=== PATIENT | female | born 1960 | race Caucasian/White ===

== ENCOUNTER 2017-05-23 20:49 | Inpatient (IN) | payer BC, OTHER ==
[~2017-05-23] VITALS: Ht 152.4 cm; Wt 67.1 kg
[2017-05-23] MEDS ORDERED: ONDANSETRON ODT 4 MG TAB.RAPDIS SL PRN (21:45)
[2017-05-23] MEDS ORDERED: MAG HYDROX/AL HYDROX/SIMETH 30 ML LIQUID UDC PO PRN (21:45)
[2017-05-23] MEDS ORDERED: ONDANSETRON 4 MG/2 ML VIAL IM PRN (21:45)
[2017-05-23] MEDS ORDERED: DICYCLOMINE HCL 20 MG TABLET PO PRN (21:45)
[2017-05-23] MEDS ORDERED: LOPERAMIDE HCL 2 MG CAPSULE PO PRN ×2 (21:45)
[2017-05-23] MEDS ORDERED: LORAZEPAM 1 MG TABLET PO PRN (21:45)
[2017-05-23] MEDS ORDERED: diphenhydrAMINE 50 MG CAPSULE PO PRN (21:45)
[2017-05-23] MEDS ORDERED: ACETAMINOPHEN 325 MG TABLET PO PRN (21:45)
[2017-05-23] MEDS ORDERED: LORAZEPAM 2 MG/1 ML VIAL IM PRN (21:45)
[2017-05-23] MEDS ORDERED: THIAMINE HCL 200 MG/2 ML VIAL IM ONE (21:45)
[2017-05-23] MEDS ORDERED: MIRALAX 17 GM POWD.PACK PO PRN (21:45)
--- NOTE | 2017-05-23 22:30 | NUR ---
PREADMISSION NOTE: 56 years old, well-nourished, alert, caucasion [facility], accompanied by her spouse and son. Patient responds to nurse's greeting and introduction with eye contact, a handshake and, "Hi, how are you?" Patient denies any pain and states that she has no seizure history. Patient states that she has an active history of : Anxiety, Depression, Hypertension, and Hyperlipidemia, for which she takes : Lipitor 40 mg, Lisinopril 40 mg, Metoprolol 50 mg, Norvasc 5 mg and Paxil 20 mg. Patient states that she has no known allergies to anything and she states further that this is her first detox admission/treatment. Patient states that her PCP is Dr. Jovita Dias. Vital signs are: 96.6-80-18 105/65, O2 Sat 96%. Patient given explanations regarding [facility] floor protocols i.e Q 4hrs vital signs, medication reconciliation and controlled medication disposal. Patient states, " okay". Patient is cooperative and verbally appropriate, but she is anxious and some questions must be repeated in order for her to answer.
[2017-05-23 22:37] LABS: *URINE HCG, QUAL NEGATIVE (NEGATIVE)
--- NOTE | 2017-05-23 22:42 | NUR ---
9304 ADMISSION NOTE: Patient admitted to [facility], to room # 318, after being given brief tour of floor by female CUFF FOLDER. Patient ambulates steady. Patient oriented to her room, call light and immediate surroundings. Patient is oriented to person, place, day, date and her personal situation. Easily reoriented to time. Vital signs are: 98.7-82-18 130/82, O2 Sat 97%, CIWA 5. Patient states that this is her first time in detox and she came to [facility] to be admitted for Alcohol withdrawal today, because her family decided that " it was time". Patient first started drinking socially at age 19 and she drink on and off casually, until 3 years ago, when she states that her drinking became more frequent and steady. Patient states that she has been drinking " five Vodka martinis every day for the past 2 weeks, though she is not exactly sure the exact amount of those martinis. Patient last had " five vodka martinis on 05/22/17. Patient had sandwich snack, juice and water. DVT pump with bilateral leg sleeves put on bed and explanation given about them given to patient. Patient states, " okay". Patient states, " When do I get to go to sleep and get some rest?" Please see preadmission note for added patient information. Fall/seizure precautions put in place. Bed is locked and in lowest position, bed rails are up X 2 and call light within patient's easy reach.
[2017-05-23 22:51] LABS: *AMPHETAMINE, URINE NEGATIVE (NEGATIVE); *BARBITURATE, URINE NEGATIVE (NEGATIVE); *CANNABINOID, URINE NEGATIVE (NEGATIVE); *COCCAINE, URINE NEGATIVE (NEGATIVE); *OPIATE, URINE NEGATIVE (NEGATIVE); *PHENCYCLIDINE SCREEN,URINE NEGATIVE (NEGATIVE)
[2017-05-23] MEDS ORDERED: LORAZEPAM 1 MG TABLET PO SCH (23:00)
[2017-05-24] VITALS: BP 130/82
[2017-05-24] MEDS ORDERED: THIAMINE HCL 200 MG/2 ML VIAL ONE (00:45)
--- NOTE | 2017-05-24 04:00 | NUR ---
Patient requests at 0000 not to be awakened for V/S, CIWA to be done at this time. These assessments deferred.
[2017-05-24] MEDS: LORAZEPAM 1 MG TABLET PO PRN ×2 (06:09→12:30)
[2017-05-24] MEDS ORDERED: LORAZEPAM 1 MG TABLET ONE (06:22)
--- NOTE | 2017-05-24 06:22 | NUR ---
PRN MEDICATION: Prn Ativan 1 mg p.o. given per c/o " feeling shakey", CIWA 5.
--- NOTE | 2017-05-24 06:30 | NUR ---
0630 Patient slept a total of 5 hours and she had 1 void and no stools. Total intake was 800 ml p.o. Prn medication given noted separately per floor protocol. V/SS afebrile, last CIWA 5 at 0622. Patient is presently sleeping comfortably with eyes closed and respirations quiet, even at 12.
[2017-05-24 06:52] LABS: BASOPHILS % (AUTO) 0.7 % (0.0-2.0); EOSINOPHILS # (AUTO) 0.1 K/uL (0.0-0.7); EOSINOPHILS % (AUTO) 1.5 % (0.0-7.0); HEMATOCRIT 39.5 % (37-47); HEMOGLOBIN 13.8 G/DL (12.0-16.0); LYMPHOCYTES # (AUTO) 1.1 K/UL (0.8-4.8); LYMPHOCYTES % (AUTO) 27.7 % (20.5-51.5); MEAN CORPUSCULAR HEMOGLOBIN 34.2 UUG (27.0-31.0); MEAN CORPUSCULAR HGB CONC 35 g/dL (32.0-37.0); MEAN CORPUSCULAR VOLUME 97.9 FL (81.0-99.0); MONOCYTES # (AUTO) 0.2 K/UL (0.1-1.30); MONOCYTES % (AUTO) 4.7 % (0.0-11.0); NEUTROPHILS # (AUTO) 2.7 K/UL (1.8-8.9); NEUTROPHILS % (AUTO) 65.4 % (38.5-71.5); PLATELET COUNT (AUTO) 201 K/UL (150-450); RED BLOOD CELL COUNT(AUTO) 4.04 MIL/UL (4.2-5.4); WHITE BLOOD COUNT (AUTO) 4.1 K/UL (4.0-11.2)
--- NOTE | 2017-05-24 07:05 | NUR ---
CIWA deferred as patient is sleeping and CIWA order is Q4 hrs while awake.
[2017-05-24 07:17] LABS: ALANINE AMINOTRANSFERASE 56 U/L (14-59); ALKALINE PHOSPHATASE 71 U/L (50-136); AMYLASE 79 U/L (25-115); ASPARTATE AMINOTRANSFERASE 50 U/L (15-37); BILIRUBIN,TOTAL 0.5 mg/dL (0.2-1.0); CARBON DIOXIDE 28 mmol/L (21-32); CHLORIDE 103 mmol/L (98-107); CREATININE 0.7 mg/dL (0.6-1.3); GLUCOSE 84 mg/dL (74-106); MAGNESIUM 1.8 mg/dL (1.8-2.4); POTASSIUM 3.2 mmol/L (3.5-5.1); TOTAL PROTEIN, SERUM 7.8 g/dL (6.4-8.2); UREA NITROGEN, BLOOD 17 mg/dL (7-18)
--- NOTE | 2017-05-24 07:28 | NUR ---
REASSESSMENT PRN MEDICATION : Patient is sleeping comfortably with eyes closed and respirations quiet, even, unlabored at 12.
--- NOTE | 2017-05-24 07:45 | NUR ---
START OF SHIFT Rcvd endorsement from ongoing nurse, client is in room, she is a/o x 4, she presents with anxious, depressed mood, flat affect. She reports restless legs and fatigue. She denies any SI/HI. Encourage client to attend to group therapy for skills to maintain sober. Encourage client to increase PO fluid intake as tolerated to facilitate detox. Client is a 56 y/o female, admitted to [facility] for withdrawal from alcohol. She is schedule to start 4 day Ativan taper @ 0900. Last CIWA 5 @ 0400. Client slept 5 hrs. She denies a hx of withdrawal-induced seizures, Client reports NKA , she is full code, regular diet. Side rails x 2 up/padded for seizure precautions. Call light within reach.
[2017-05-24 08:33] VITALS: BP 144/98
[2017-05-24] MEDS: FOLIC ACID 1 MG TABLET PO SCH (08:55)
[2017-05-24] MEDS: THIAMINE HCL 100 MG TABLET PO SCH (08:55)
[2017-05-24] MEDS: MULTIVITAMINS,THERAPEUTIC TABLET PO SCH (08:55)
[2017-05-24] MEDS ORDERED: TUBERCULIN,PURIF.PROT.DERIV. 5 TU/0.1 ML TEST ID ONE (09:00)
[2017-05-24] MEDS ORDERED: PATIENT MAY USE OWN MED- MD OK PO SCH ×4 (09:00→21:00)
[2017-05-24] MEDS ORDERED: LORAZEPAM 1 MG TABLET PO SCH (09:00)
[2017-05-24] MEDS ORDERED: POTASSIUM CHLORIDE 10 MEQ CAPSULE.SA PO ONE (09:30)
[2017-05-24] MEDS ORDERED: METOPROLOL SUCCINATE XL 50 MG TAB.SR.24H PO ONE (10:00)
[2017-05-24] MEDS ORDERED: AMLODIPINE 5 MG TABLET PO ONE (10:00)
[2017-05-24] MEDS ORDERED: LISINOPRIL 20 MG TABLET PO ONE (10:00)
--- NOTE | 2017-05-24 10:00 | NUR ---
Client reports pain on urination. Client is afebrile. Dr Dugan notified
[2017-05-24] MEDS ORDERED: AMLO5TAB2 PO (10:22)
[2017-05-24] MEDS ORDERED: LISI40TA4 PO (10:22)
[2017-05-24] MEDS ORDERED: METO-304 PO (10:22)
[2017-05-24] MEDS ORDERED: ATOR40TA PO (10:22)
[2017-05-24] MEDS ORDERED: PARO20TA51 PO (10:25)
--- NOTE | 2017-05-24 10:30 | NUR ---
Dr. Dugan ordered urinalysis.
[2017-05-24 11:08] LABS: ETHANOL < 3 MG/DL (0-0)
--- NOTE | 2017-05-24 11:30 | NUR ---
Urine specimen collected, urine noted colin color, normal odor, zero sediments.
[2017-05-24 12:23] VITALS: BP 138/88
--- NOTE | 2017-05-24 12:30 | NUR ---
PRN Ativan 1mg PO administered for CIWA 13, M/B gross tremors, anxiety, diaphoresis, flashed face, increased P 108. Call light within reach.
--- NOTE | 2017-05-24 13:30 | NUR ---
Reassessment PRN Ativan 1mg PO decrease withdrawal symproms, less anxious, less tremors, CIWA 7, P 90. Call light within reach.
[2017-05-24 13:35] LABS: *BLOOD, URINE Trace-lysed (NEGATIVE); *CLARITY,URINE SLIGHTLY CLOUDY (CLEAR); *COLOR,URINE YELLOW (YELLOW); *KETONES,URINE NEGATIVE (NEGATIVE); *PROTEIN,URINE 1+ (NEGATIVE); LEUKOCYTE ESTERASE ,URINE TRACE (NEGATIVE); NITRITE, URINE NEGATIVE (NEGATIVE); UGLUCOSE NEGATIVE (NEGATIVE)
[2017-05-24 13:46] LABS: *BILIRUBIN,URIN NEGATIVE (NEGATIVE)
[2017-05-24] MEDS: LORAZEPAM 1 MG TABLET PO SCH ×3 (13:59→20:12)
[2017-05-24 14:00] LABS: BACTERIA,URINE MODERATE /HPF (NONE SEEN); SQUAMOUS EPITHELIAL CELL,UR MANY /HPF (NONE SEEN)
[2017-05-24 16:55] VITALS: BP 132/99
--- NOTE | 2017-05-24 19:41 | NUR ---
START OF SHIFT Rcvd endorsement from ongoing nurse, client is in room, she is a/o x 4, she presents with anxious, depressed mood, flat affect. She reports restless legs and fatigue. She denies any SI/HI. Encourage client to attend to group therapy for skills to maintain sober. Encourage client to increase PO fluid intake as tolerated to facilitate detox. Client is a 56 y/o female, admitted to [facility] for withdrawal from alcohol. She is schedule to start 4 day Ativan taper @ 0900. Last CIWA 5 @ 0400. Client slept 5 hrs. She denies a hx of withdrawal-induced seizures, Client reports NKA , she is full code, regular diet. Side rails x 2 up/padded for seizure precautions. Call light within reach. Addendum: 05/24/17 at 1945 by ALEX HOLDER RN IN ERROR
--- NOTE | 2017-05-24 19:46 | NUR ---
END OF SHIFT Client is a 56 y/o female, admitted to [facility] for withdrawal from alcohol. She is on 4 day Ativan taper, tolerating well. Last CIWA 14 @ 0400. PRN Ativan 1mg for CIWA 13, after an hour CIWA 7. Client compliant with 1/3 of group therapy. She denies a hx of withdrawal-induced seizures, Client reports NKA , she is full code, regular diet. Side rails x 2 up/padded for seizure precautions. Call light within reach.
--- NOTE | 2017-05-24 19:47 | NUR ---
START OF SHIFT Pt is a 56 y/o female admitted on 05/23/17 for ETOH dependence. Pt was dependent on vodka 5 martinis daily for the past 2 weeks. Pt is full code, NKA, regular diet and fall/seizure precautions. Denies hx of seizures. Pt reports PMH of HTN, depression, anxiety, hyperlipidemia, left hip replacement, right shoulder repair. Pt is on a 4 day Ativan taper that started on 05/24/17, tolerating well. Potassium was 3.2 on 05/24/17, replaced with K+ 30 meq during day shift. Upon assessment pt was sleeping, upon awakening pt presents with gross tremors, anxiety, fatigue, difficulty concentrating, headache 07/20, decreased appetite, chills, mild sweats, dysphoria, anhedonia. Pt also reports dysuria, denies hematuria. Respirations 16, even and unlabored. Denies N/V/D. Denies chest pain or SOB. Medications due. Safety measures in place with padded rails. Call light within reach. Will continue to monitor. Addendum: 05/24/17 at 2223 by KHADAR GONZALEZ RN Pt has VTE score 2, pumps in place.
[2017-05-24 20:00] VITALS: BP 116/64
[2017-05-24] MEDS: PAROXETINE HCL 20 MG TABLET PO SCH (20:12)
[2017-05-24] MEDS: ATORVASTATIN 40 MG TABLET PO SCH (20:12)
[2017-05-24] MEDS: GABAPENTIN 300 MG CAPSULE PO SCH (20:12)
[2017-05-25] VITALS (7 sets, daily range): BP systolic 122–169; BP diastolic 67–109
--- NOTE | 2017-05-25 | NUR ---
CIWA DEFERRED Pt is laying in bed with eyes closed, CIWA deferred, to be assessed when pt is awake per orders. Respirations 16, even and unlabored. Safety measures in place. Call light within reach. Will continue to monitor.
--- NOTE | 2017-05-25 07:06 | NUR ---
END OF SHIFT Pt is a 56 y/o female admitted on 05/23/17 for ETOH dependence. Pt was dependent on vodka 5 martinis daily for the past 2 weeks. Pt is full code, NKA, regular diet and fall/seizure precautions. Denies hx of seizures. Pt reports PMH of HTN, depression, anxiety, hyperlipidemia, left hip replacement, right shoulder repair. Pt is on a 4 day Ativan taper that started on 05/24/17, tolerating well. Potassium was 3.2 on 05/24/17, replaced with K+ 30 meq. Pt has VTE score 2, pumps in place. Pt presented with gross tremors, anxiety, fatigue, difficulty concentrating, headache /10, decreased appetite, chills, mild sweats, dysphoria, anhedonia. Pt also reports dysuria, denies hematuria. Scheduled medications administered, effective in S/S of withdrawal as verbalized by pt. No PRNs administered. Last CIWA 9 at 1999. Pt slept 10 hours, intake 276 ml, void x 1, stool x 0. Safety measures in place. Call light within reach. Pts needs have been met. Endorsed to day shift nurse.
--- NOTE | 2017-05-25 07:10 | NUR ---
Start of Shift Patient Received. Patient is in her room sleeping. Breathing even and non labored. No signs of pain or discomfort noted. Patient is a 56 year old female, admitted on 05/23/17 for ETOH Dependence under the care of Dr. Dugan and is currently receiving a modified 4 day Ativan taper. Patient verbalizes no known allergies, wishes to be full code, following a regular diet, and placed on fall precautions. Skin noted with excoriation to lateral thigh. Per endorsement, last noted CIWA 9 and slept a total of 10 hours. patient noted with episodes of dysuria but denies hematuria. Will follow up with MD regarding UA. All needs attended to promptly. Will continue plan of care as ordered.
[2017-05-25] MEDS: FOLIC ACID 1 MG TABLET PO SCH (08:08)
[2017-05-25] MEDS: PAROXETINE HCL 20 MG TABLET PO SCH (08:08)
[2017-05-25] MEDS: MULTIVITAMINS,THERAPEUTIC TABLET PO SCH (08:09)
[2017-05-25] MEDS: GABAPENTIN 300 MG CAPSULE PO SCH ×3 (08:09→20:17)
[2017-05-25] MEDS: LISINOPRIL 20 MG TABLET PO SCH (08:09)
[2017-05-25] MEDS: LORAZEPAM 1 MG TABLET PO SCH ×4 (08:09→20:17)
[2017-05-25] MEDS: THIAMINE HCL 100 MG TABLET PO SCH (08:09)
[2017-05-25] MEDS: AMLODIPINE 5 MG TABLET PO SCH (08:09)
[2017-05-25] MEDS ORDERED: LORAZEPAM 1 MG TABLET PO SCH (09:00)
[2017-05-25] MEDS ORDERED: METOPROLOL SUCCINATE XL 50 MG TAB.SR.24H PO SCH (09:00)
--- NOTE | 2017-05-25 10:28 | NUR ---
Therapist prompted client about group times. Client stated she would attend groups today.
[2017-05-25 11:07] LABS: HEPATITIS B SURFACE AG Negative (Negative)
[2017-05-25] MEDS ORDERED: METOPROLOL SUCCINATE XL 25 MG TAB.SR.24H PO ONE (13:00)
[2017-05-25 17:42] LABS: CREATININE 0.9 mg/dL (0.6-1.3); POTASSIUM 4.2 mmol/L (3.5-5.1)
--- NOTE | 2017-05-25 19:04 | NUR ---
End of Shift Patient Received. Patient is in activities room participating in group activities. Patient is a 56 year old female, admitted on 05/23/17 for ETOH Dependence under the care of Dr. Dugan and is currently receiving a modified 4 day Ativan taper. No Known Allergies, Full Code, Regular Diet, and placed on fall precautions. Skin noted with excoriation to lateral thigh. Patient was seen and evaluated by MD with new orders for labs as well as changes tor routine medications. Patient Refused 1500 Neurontin with MD made aware. Last noted CIWA 3. All needs attended to promptly. Will endorse to continue plan of care as ordered.
--- NOTE | 2017-05-25 19:30 | NUR ---
START OF SHIFT Pt is a 56 y/o female admitted on 05/23/17 for ETOH dependence. Pt was dependent on vodka 5 martinis daily for the past 2 weeks. Pt is full code, NKA, regular diet and fall/seizure precautions. Denies hx of seizures. Pt reports PMH of HTN, depression, anxiety, hyperlipidemia, left hip replacement, right shoulder repair. Pt is on a 4 day Ativan taper that started on 05/24/17, tolerating well. Pt has VTE score 2, pumps in place. Upon assessment pt is laying in bed watching TV and pt presents with gross tremors, anxiety, fatigue, difficulty concentrating, decreased appetite, intermittent chills, intermittent sweats, dysphoria, anhedonia. Pt also reports dysuria, denies hematuria. Respirations 16, even and unlabored. Denies N/V/D. Denies chest pain or SOB. Medications due. Safety measures in place with padded rails. Call light within reach. Will continue to monitor.
[2017-05-25] MEDS: ATORVASTATIN 40 MG TABLET PO SCH (20:17)
[2017-05-26] VITALS: BP 133/80
--- NOTE | 2017-05-26 | NUR ---
CIWA DEFERRED Pt is laying in bed with eyes closed, CIWA deferred, to be assessed when pt is awake per orders. Respirations 12, even and unlabored. Safety measures in place. Call light within reach. Will continue to monitor.
[2017-05-26 04:00] VITALS: BP 134/97
--- NOTE | 2017-05-26 04:00 | NUR ---
CIWA DEFERRED Pt is laying in bed with eyes closed, CIWA deferred, to be assessed when pt is awake per orders. Respirations 14, even and unlabored. Safety measures in place. Call light within reach. Will continue to monitor.
--- NOTE | 2017-05-26 07:25 | NUR ---
END OF SHIFT Pt is a 56 y/o female admitted on 05/23/17 for ETOH dependence. Pt was dependent on vodka 5 martinis daily for the past 2 weeks. Pt is full code, NKA, regular diet and fall/seizure precautions. Denies hx of seizures. Pt reports PMH of HTN, depression, anxiety, hyperlipidemia, left hip replacement, right shoulder repair. Pt is on a 4 day Ativan taper that started on 05/24/17, tolerating well. Pt has VTE score 2, pumps in place. Pt presented presents with gross tremors, anxiety, fatigue, difficulty concentrating, decreased appetite, intermittent chills, intermittent sweats, dysphoria, anhedonia. Pt also reports dysuria, denies hematuria. Scheduled medications administered, effective in S/S of withdrawal as verbalized by pt. No PRNs administered. Last CIWA 5 at 1999. Pt slept 8 hours, intake 890 ml, void x 3, stool x 0. Safety measures in place. Call light within reach. Will continue to monitor. Endorsed to day shift nurse.
--- NOTE | 2017-05-26 07:45 | NUR ---
START OF SHIFT Rcvd endorsement from ongoing nurse, client is in room, she is a/o x 4, she presents with depressed mood, flat affect, fine tremors, and flushed face. She reports anxiety, decreased in appetite, restless legs, and fatigue. She denies any N/V/D. She denies any SI/HI. Encourage client to attend to group therapy for skills to maintain sober. Encourage client to increase PO fluid intake as tolerated to facilitate detox. RPR reactive (05/24/17). Dr. Dugan ordered repeat RPR and FTA-ABS. Client denies any pain on urination, LBM 05/25/17. Client is a 56 y/o female, admitted to [facility] for withdrawal from alcohol. She is on a 4 day Ativan taper, tolerating well (day 3). Last CIWA 5 @ 1999. Client slept 8 hrs. She denies a hx of withdrawal-induced seizures, Client reports NKA , she is full code, regular diet. Side rails x 2 up/padded for seizure precautions. Call light within reach.
[2017-05-26 08:30] VITALS: BP 148/106
[2017-05-26] MEDS: LISINOPRIL 20 MG TABLET PO SCH (08:37)
[2017-05-26] MEDS: MULTIVITAMINS,THERAPEUTIC TABLET PO SCH (08:38)
[2017-05-26] MEDS: LORAZEPAM 1 MG TABLET PO SCH ×2 (08:38→14:19)
[2017-05-26] MEDS: GABAPENTIN 300 MG CAPSULE PO SCH ×3 (08:38→20:51)
[2017-05-26] MEDS: IBUPROFEN 600 MG TABLET PO PRN (08:38)
[2017-05-26] MEDS: FOLIC ACID 1 MG TABLET PO SCH (08:38)
[2017-05-26] MEDS: THIAMINE HCL 100 MG TABLET PO SCH (08:38)
[2017-05-26] MEDS: AMLODIPINE 5 MG TABLET PO SCH (08:38)
[2017-05-26] MEDS: PAROXETINE HCL 20 MG TABLET PO SCH (08:38)
--- NOTE | 2017-05-26 08:38 | NUR ---
PRN Ibuprofen 600mg PO for lower back pain 10/18. call light within reach.
[2017-05-26] MEDS: METOPROLOL SUCCINATE XL 50 MG TAB.SR.24H PO SCH (08:39)
[2017-05-26] MEDS ORDERED: LORAZEPAM 1 MG TABLET PO SCH ×2 (09:00→21:00)
--- NOTE | 2017-05-26 09:00 | NUR ---
Zero induration noted at TB site on Left forearm.
--- NOTE | 2017-05-26 09:38 | NUR ---
Reassessment PRN Ibuprofen 600mg, client reports relief from lower back pain 0/10. call light within reach.
[2017-05-26 12:34] VITALS: BP 136/88
--- NOTE | 2017-05-26 15:00 | NUR ---
Client refused her 1500 Ativan 1mg PO notified.
[2017-05-26 16:55] VITALS: BP 138/96
--- NOTE | 2017-05-26 19:21 | NUR ---
END OF SHIFT Client is a 56 y/o female, she is a/o x 4, admitted to [facility] for withdrawal from alcohol. She is on a 4 day Ativan taper, tolerating well (day 3). Last CIWA 7 @ 1600. Client refused her 1500 Ativan 1mg PO, notified. PRN Ibuprofen 600mg PO for lower back pain 10/18, noted effective. Client is compliant with 2/3 of group therapy. Client consumes 75% of meals, adequate PO fluid intake 2592mL, void x 4, stool x 1. She denies a hx of withdrawal-induced seizures, Client reports NKA , she is full code, regular diet. Side rails x 2 up/padded for seizure precautions. Call light within reach.
--- NOTE | 2017-05-26 19:30 | NUR ---
START OF SHIFT Pt is a 56 y/o female admitted on 05/23/17 for ETOH dependence. Pt was dependent on vodka 5 martinis daily for the past 2 weeks. Pt is full code, NKA, regular diet and fall/seizure precautions. Denies hx of seizures. Pt reports PMH of HTN, depression, anxiety, hyperlipidemia, left hip replacement, right shoulder repair. Pt is on a 4 day Ativan taper that started on 05/24/17, tolerating well. Pt has VTE score 2, pumps in place. Upon assessment pt is laying in bed watching TV and pt presents with mild gross tremors, anxiety, fatigue, decreased appetite, intermittent chills, intermittent sweats, dysphoria, anhedonia. RPR reactive, repeat RPR and FTA-ABS ordered. Respirations 14, even and unlabored. Denies N/V/D. Denies chest pain or SOB. Medications due. Safety measures in place with padded rails. Call light within reach. Will continue to monitor.
[2017-05-26 20:00] VITALS: BP 106/67
[2017-05-26] MEDS: ATORVASTATIN 40 MG TABLET PO SCH (20:51)
[2017-05-26] MEDS ORDERED: AMLODIPINE 5 MG TABLET PO ONE (21:00)
--- NOTE | 2017-05-27 | NUR ---
CIWA DEFERRED AND VITALS REFUSED Pt is laying in bed with eyes closed, CIWA deferred, to be assessed when pt is awake per orders. Vitals refused. Respirations 16, even and unlabored. Safety measures in place. Call light within reach. Will continue to monitor.
--- NOTE | 2017-05-27 07:20 | NUR ---
END OF SHIFT Pt is a 56 y/o female admitted on 05/23/17 for ETOH dependence. Pt was dependent on vodka 5 martinis daily for the past 2 weeks. Pt is full code, NKA, regular diet and fall/seizure precautions. Denies hx of seizures. Pt reports PMH of HTN, depression, anxiety, hyperlipidemia, left hip replacement, right shoulder repair. Pt is on a 4 day Ativan taper that started on 05/24/17, tolerating well. Pt has VTE score 2, pumps in place. Pt presented with mild gross tremors, anxiety, fatigue, decreased appetite, intermittent chills, intermittent sweats, dysphoria, anhedonia. RPR reactive, repeat RPR and FTA-ABS ordered. Scheduled medications administered, effective in S/S of withdrawal as verbalized by pt. Last CIWA 5 at 1999. Pt slept 10 hours, intake 796 ml, void x 2, stool x 0. Safety measures in place. Call light within reach. Pts needs have been met. Endorsed to day shift nurse.
--- NOTE | 2017-05-27 07:30 | NUR ---
START OF SHIFT Pt 56 y/o female admitted for alcohol withdrawal. Pt received in room on bed awake. Pt alert and oriented to name, place, and time. Perrla. Skin warm and dry to touch. Respirations even and unlabored. Bilateral hand tremors noted slightly. It was reported that pt slept for 10 hours last night. Bed on lowest position with side rails x2 up for safety. Call light within reach. No distress noted at this time.
[2017-05-27 08:00] VITALS: BP 134/86
[2017-05-27] MEDS ORDERED: LORAZEPAM 1 MG TABLET PO SCH (09:00)
[2017-05-27] MEDS: METOPROLOL SUCCINATE XL 50 MG TAB.SR.24H PO SCH (09:17)
[2017-05-27] MEDS: GABAPENTIN 300 MG CAPSULE PO SCH ×3 (09:18→21:06)
[2017-05-27] MEDS: PAROXETINE HCL 20 MG TABLET PO SCH (09:18)
[2017-05-27] MEDS: THIAMINE HCL 100 MG TABLET PO SCH (09:18)
[2017-05-27] MEDS: AMLODIPINE 10 MG TABLET PO SCH (09:18)
[2017-05-27] MEDS: MULTIVITAMINS,THERAPEUTIC TABLET PO SCH (09:18)
[2017-05-27] MEDS: IBUPROFEN 600 MG TABLET PO PRN ×2 (09:18→17:18)
[2017-05-27] MEDS: FOLIC ACID 1 MG TABLET PO SCH (09:19)
[2017-05-27] MEDS: LISINOPRIL 20 MG TABLET PO SCH (09:26)
--- NOTE | 2017-05-27 09:30 | NUR ---
PRN Pt states has lower back pain 6/10. Motrin po prn per MD order given and tolerated well.
--- NOTE | 2017-05-27 10:30 | NUR ---
PRN EVAL Pt states does not have headache.
[2017-05-27 12:00] VITALS: BP 132/88
[2017-05-27] MEDS ORDERED: PENICILLIN G BENZATHINE 2.4 MMU/4 ML DISP.SYRIN IM ONE (17:00)
--- NOTE | 2017-05-27 17:19 | NUR ---
PRN Pt states has generalized body pain 5/10. Motrin po prn per MD order given and tolerated well.
[2017-05-27 18:07] VITALS: BP 126/88
--- NOTE | 2017-05-27 18:19 | NUR ---
SHANNAN TIMMONS Pt states pain 07/20.
--- NOTE | 2017-05-27 18:20 | NUR ---
END OF SHIFT Pt 56 y/o female admitted for alcohol withdrawal. Pt alert and oriented to name, place, and time. Perrla. Skin warm and dry to touch. Respirations even and unlabored. Bilateral hand tremors noted slightly. Pt observed mostly in room today. Pt attended group activity today. Pt was seen by MD today. Pt medication compliant and tolerated well. No ASE noted. Pt is scheduled to be discharged tomorrow to home. Bed on lowest position with side rails x2 up for safety. Call light within reach. No distress noted at this time.
[2017-05-27 20:00] VITALS: BP 121/79
--- NOTE | 2017-05-27 20:00 | NUR ---
1999 Patient received lying quietly in supine position with eyes closed and respirations quiet, even at 16. Easily aroused for nurse assess and vital signs. Upon seeing nurse, patient states, " Oh hi there! You were off a few days, huh?" Patient's color is pink and her skin is clean, warm, dry and intact. Patient is oriented to person, place, day, date and her personal situation. Reoriented to time. Patient states, " I'm leaving tomorrow and I feel better now". Patient states further, " I been eating all of my trays and drinking lots water, and I've also been going to and participating in all the groups. I was on the [employer]". Vital signs are: 98.3-91-16 121/79, O2 Sat 99%, CIWA 2 . SQD bilateral hose in place on patient's legs with pump on FOB and turned, for compression. Patient denies any pain or other discomforts presently and she voices no requests for anything at this time. Patient was admitted on 05/23/17 for Alcohol withdrawal and she has completed a 4-Day Ativan medication taper at this time. Bed is locked and in lowest position, bed rails are up X 2 , F/S precautions continue and call light on bed
[2017-05-27] MEDS ORDERED: AMLO10TA2 PO (20:11)
[2017-05-27] MEDS ORDERED: IBUP-1955 PO (20:11)
[2017-05-27] MEDS ORDERED: METO50TA7 PO (20:11)
[2017-05-27] MEDS ORDERED: GABA-534 PO (20:11)
[2017-05-27] MEDS ORDERED: DIPH50CA37 PO (20:11)
[2017-05-27] MEDS: ATORVASTATIN 40 MG TABLET PO SCH (21:06)
--- NOTE | 2017-05-27 21:07 | NUR ---
PRN MEDICATION: Prn Benadryl 50 mg p.o. given per request for sleep medication.
--- NOTE | 2017-05-27 22:07 | NUR ---
REASSESSMENT PRN MEDICATION: Patient is sleeping comfortably with eyes closed and respirations quiet, even, unlabored at 12.
--- NOTE | 2017-05-28 | NUR ---
Patient requested at 1999, not to be awakened for V/S, CIWA to be done at this time. V/S, CIWA deferred.
--- NOTE | 2017-05-28 04:00 | NUR ---
Patient refused to be awakened for V/S, CIWA to be done at this time. V/S, CIWA deferred.
--- NOTE | 2017-05-28 06:30 | NUR ---
0630 Patient slept a total of 7.25 hours and she had 3 voids and 1 stools. Total intake was 2,850 ml p.o. Prn medication given noted separately per floor protocol. V/SS afebrile, last CIWA 2 at 1999.
--- NOTE | 2017-05-28 07:35 | NUR ---
START OF SHIFT Received report from manager night nurse. 56 year old female admitted on 05/23/17 for ETOH withdrawals. Pt has completed 4 day Ativan taper and is medically cleared for discharge. Pt states she is ready. PRN Benadryl administered at night for sleep. Pt was RPR reactive, pcn administered. CIWA 2 at 0400, v/s remain wnl. Pt remains compliant with ordered medications and does not present with acute s/s of withdrawals at this time. Slept for 7 hours. Safety measures are in place, will continue to monitor.
[2017-05-28] MEDS: AMLODIPINE 10 MG TABLET PO SCH (08:04)
[2017-05-28] MEDS: GABAPENTIN 300 MG CAPSULE PO SCH (08:04)
[2017-05-28] MEDS: METOPROLOL SUCCINATE XL 50 MG TAB.SR.24H PO SCH (08:04)
[2017-05-28] MEDS: THIAMINE HCL 100 MG TABLET PO SCH (08:04)
[2017-05-28] MEDS: FOLIC ACID 1 MG TABLET PO SCH (08:05)
[2017-05-28] MEDS: PAROXETINE HCL 20 MG TABLET PO SCH (08:05)
[2017-05-28] MEDS: LISINOPRIL 20 MG TABLET PO SCH (08:05)
[2017-05-28] MEDS: MULTIVITAMINS,THERAPEUTIC TABLET PO SCH (08:05)
--- NOTE | 2017-05-28 08:15 | NUR ---
D/C NOTES Pt is A/O x4. V/S remain WNL. Pt denies SI/HI or hallucinations. Pt shows no s/s of acute withdrawal at this time, and is stable. has medically cleared pt for d/c.Education on Hepatitis C, smoking cessation and medication side effects provided. Pt verbalizes understanding. All pt belongings are in belonging bag, including prescriptions, pt did not have any home medications. Refuses PNU vaccination. Pt is being accompanied by OFFICE COMMUNICATION PROFESSOR at this time to be transported to rehab. All needs met.
[2017-05-28 08:16] VITALS: BP 131/90
== END 2017-05-28 08:15 | disposition home or self-care (01) | DRG 895 ==
LOC: SRC 20:49
PROVIDERS: ADMIT Internal Medicine; ATTEND Internal Medicine
PROC: HZ2ZZZZ Detoxification Services for Substance Abuse Treatment (ICD-10-PCS; principal; 2017-05-23)
PROC: HZ41ZZZ Group Counseling for Substance Abuse Treatment, Behavioral (ICD-10-PCS; 2017-05-24)
PROC: HZ31ZZZ Individual Counseling for Substance Abuse Treatment, Behavioral (ICD-10-PCS; 2017-05-25)
DX: F10.230 Alcohol dependence with withdrawal, uncomplicated (principal); K70.10 Alcoholic hepatitis without ascites; A53.0 Latent syphilis, unspecified as early or late; E78.5 Hyperlipidemia, unspecified; Z96.642 Presence of left artificial hip joint; Z82.49 Family history of ischemic heart disease and other diseases of the circulatory system; Z80.0 Family history of malignant neoplasm of digestive organs; Z81.1 Family history of alcohol abuse and dependence; F32.9 Major depressive disorder, single episode, unspecified; E87.6 Hypokalemia; R30.0 Dysuria; I10 Essential (primary) hypertension
CPT/HCPCS: 36415; 70030-TC; 80307; 83735; 84703; 85025; 86580; 86592; 86705; 86780; 86803; 87340; 87806; A4663; G0480; J3411; Q0163

== ENCOUNTER 2018-01-09 13:53 | Inpatient (IN) | payer BC, OTHER ==
[~2018-01-09] VITALS: Ht 157.5 cm; Wt 67.1 kg
[~2018-01-09 13:53] MED LIST: AMLO10TA2 PO; ATOR40TA PO; DIPH50CA37 PO; GABA-534 PO; IBUP-1955 PO; LISI40TA4 PO; METO50TA7 PO; PARO20TA51 PO
[2018-01-09 16:00] VITALS: BP 159/84
[2018-01-09] MEDS ORDERED: AMLO5TAB2 PO (16:09)
[2018-01-09] MEDS ORDERED: ATOR40TA PO (16:09)
[2018-01-09] MEDS ORDERED: METO-358 PO (16:09)
[2018-01-09] MEDS ORDERED: LISI40TA4 PO (16:09)
[2018-01-09] MEDS ORDERED: TRAZ-144 PO (16:09)
[2018-01-09 16:44] LABS: *URINE HCG, QUAL NEGATIVE (NEGATIVE)
[2018-01-09] MEDS ORDERED: MAG HYDROX/AL HYDROX/SIMETH 30 ML LIQUID UDC PO PRN (16:45)
[2018-01-09] MEDS ORDERED: MAGNESIUM HYDROXIDE 30 ML LIQUID UDC PO PRN (16:45)
[2018-01-09] MEDS ORDERED: diphenhydrAMINE 50 MG CAPSULE PO PRN (16:45)
[2018-01-09] MEDS ORDERED: ACETAMINOPHEN 325 MG TABLET PO PRN (16:45)
[2018-01-09] MEDS ORDERED: LORAZEPAM 1 MG TABLET PO PRN (16:45)
[2018-01-09] MEDS ORDERED: LORAZEPAM 2 MG/1 ML VIAL IM PRN (16:45)
[2018-01-09] MEDS ORDERED: THIAMINE HCL 200 MG/2 ML VIAL IM ONE (16:45)
[2018-01-09] MEDS ORDERED: MIRALAX 17 GM POWD.PACK PO PRN (16:45)
[2018-01-09] MEDS ORDERED: LOPERAMIDE HCL 2 MG CAPSULE PO PRN ×2 (16:45)
[2018-01-09] MEDS ORDERED: CLONIDINE HCL 0.1 MG TABLET PO PRN (16:45)
[2018-01-09] MEDS ORDERED: ONDANSETRON 4 MG/2 ML VIAL IM PRN (16:45)
[2018-01-09 16:46] LABS: *AMPHETAMINE, URINE NEGATIVE (NEGATIVE); *BARBITURATE, URINE NEGATIVE (NEGATIVE); *CANNABINOID, URINE NEGATIVE (NEGATIVE); *COCCAINE, URINE NEGATIVE (NEGATIVE); *OPIATE, URINE NEGATIVE (NEGATIVE); *PHENCYCLIDINE SCREEN,URINE NEGATIVE (NEGATIVE)
[2018-01-09 17:30] VITALS: BP 138/89
[2018-01-09 18:06] LABS: BASOPHILS % (AUTO) 0.6 % (0.0-2.0); EOSINOPHILS % (AUTO) 0.5 % (0.0-7.0); HEMATOCRIT 39.5 % (31.2-41.9); HEMOGLOBIN 13.7 g/dL (10.9-14.3); LYMPHOCYTES % (AUTO) 25.2 % (20.5-51.5); MEAN CORPUSCULAR HEMOGLOBIN 33.6 uug (24.7-32.8); MEAN CORPUSCULAR HGB CONC 35 g/dL (32.3-35.6); MEAN CORPUSCULAR VOLUME 97.3 fL (75.5-95.3); MONOCYTES # (AUTO) 0.2 K/uL (2.0-10.0); NEUTROPHILS # (AUTO) 2.8 K/uL (1.8-8.9); NEUTROPHILS % (AUTO) 69.7 % (38.5-71.5); PLATELET COUNT (AUTO) 177 K/uL (179-408); RED BLOOD CELL COUNT(AUTO) 4.06 MIL/uL (3.63-4.92); WHITE BLOOD COUNT (AUTO) 4.1 K/uL (3.8-11.8)
[2018-01-09 18:16] LABS: BILIRUBIN,TOTAL 0.5 mg/dL (0.2-1.0); CREATININE 0.9 mg/dL (0.6-1.3); MAGNESIUM 1.7 mg/dL (1.8-2.4); POTASSIUM 3.4 mmol/L (3.5-5.1); TOTAL PROTEIN, SERUM 7.8 g/dL (6.4-8.2)
[2018-01-09 18:27] LABS: THYROID STIMULATING HORMONE 0.709 mIU/mL (0.358-3.740)
[2018-01-09] MEDS: LORAZEPAM 1 MG TABLET PO PRN ×2 (19:35→22:33)
[2018-01-09] MEDS: ONDANSETRON ODT 4 MG TAB.RAPDIS SL PRN (19:37)
[2018-01-09 20:00] VITALS: BP 130/91
[2018-01-09] MEDS: PAROXETINE HCL 20 MG TABLET PO SCH (21:50)
[2018-01-10] VITALS: BP 135/81
[2018-01-10 04:00] VITALS: BP 124/78
[2018-01-10] MEDS: PAROXETINE HCL 20 MG TABLET PO SCH (07:48)
[2018-01-10] MEDS: THIAMINE HCL 100 MG TABLET PO SCH (07:48)
[2018-01-10] MEDS: MULTIVITAMINS,THERAPEUTIC TABLET PO SCH (07:48)
[2018-01-10] MEDS: FOLIC ACID 1 MG TABLET PO SCH (07:49)
[2018-01-10] MEDS: LORAZEPAM 1 MG TABLET PO PRN ×3 (07:49→14:48)
[2018-01-10 08:00] VITALS: BP 151/101
[2018-01-10] MEDS ORDERED: MAGNESIUM OXIDE 400 MG TABLET PO ONE (09:00)
[2018-01-10] MEDS ORDERED: TUBERCULIN,PURIF.PROT.DERIV. 5 TU/0.1 ML TEST ID ONE (09:00)
[2018-01-10] MEDS ORDERED: POTASSIUM CHLORIDE 20 MEQ TAB.PRT.SR PO ONE (09:00)
[2018-01-10 12:00] VITALS: BP 132/90
[2018-01-10] MEDS: ONDANSETRON ODT 4 MG TAB.RAPDIS SL PRN (12:08)
[2018-01-10 16:00] VITALS: BP 130/93
[2018-01-10] MEDS: ATORVASTATIN 40 MG TABLET PO SCH (16:34)
[2018-01-10] MEDS: AMLODIPINE 5 MG TABLET PO SCH (16:35)
[2018-01-10] MEDS: LISINOPRIL 20 MG TABLET PO SCH (16:35)
[2018-01-10] MEDS: METOPROLOL SUCCINATE XL 25 MG TAB.SR.24H PO SCH (16:36)
[2018-01-10] MEDS: IBUPROFEN 400 MG TABLET PO PRN (16:40)
[2018-01-10 20:00] VITALS: BP 125/85
[2018-01-10] MEDS ORDERED: LORAZEPAM 1 MG TABLET PO PRN ×2 (20:45)
[2018-01-11 08:37] VITALS: BP 136/93
[2018-01-11] MEDS ORDERED: 5 DAY TAPER OF LORAZEPAM -SERENITY PROTOCOL PO PRN (09:00)
[2018-01-11] MEDS: LORAZEPAM 1 MG TABLET PO SCH ×3 (09:00→20:09)
[2018-01-11] MEDS: AMLODIPINE 5 MG TABLET PO SCH (09:01)
[2018-01-11] MEDS: PAROXETINE HCL 20 MG TABLET PO SCH (09:02)
[2018-01-11] MEDS: THIAMINE HCL 100 MG TABLET PO SCH (09:02)
[2018-01-11] MEDS: METOPROLOL SUCCINATE XL 25 MG TAB.SR.24H PO SCH (09:02)
[2018-01-11] MEDS: MULTIVITAMINS,THERAPEUTIC TABLET PO SCH (09:02)
[2018-01-11] MEDS: FOLIC ACID 1 MG TABLET PO SCH (09:02)
[2018-01-11] MEDS: LISINOPRIL 20 MG TABLET PO SCH (09:02)
[2018-01-11 09:07] LABS: HEPATITIS B SURFACE AG Negative (Negative)
[2018-01-11 12:26] VITALS: BP 133/96
[2018-01-11 16:52] VITALS: BP 143/101
[2018-01-11 20:00] VITALS: BP 122/84
[2018-01-11] MEDS: IBUPROFEN 400 MG TABLET PO PRN (20:10)
[2018-01-11] MEDS: ATORVASTATIN 40 MG TABLET PO SCH (20:10)
[2018-01-12 08:09] VITALS: BP 133/96
[2018-01-12] MEDS: PAROXETINE HCL 20 MG TABLET PO SCH (08:12)
[2018-01-12] MEDS: ONDANSETRON ODT 4 MG TAB.RAPDIS SL PRN (08:12)
[2018-01-12] MEDS: LISINOPRIL 20 MG TABLET PO SCH (08:13)
[2018-01-12] MEDS: THIAMINE HCL 100 MG TABLET PO SCH (08:14)
[2018-01-12] MEDS: FOLIC ACID 1 MG TABLET PO SCH (08:14)
[2018-01-12] MEDS: AMLODIPINE 5 MG TABLET PO SCH (08:14)
[2018-01-12] MEDS: MULTIVITAMINS,THERAPEUTIC TABLET PO SCH (08:14)
[2018-01-12 08:19] VITALS: BP 133/96
[2018-01-12] MEDS: METOPROLOL SUCCINATE XL 25 MG TAB.SR.24H PO SCH (08:19)
[2018-01-12] MEDS ORDERED: LORAZEPAM 1 MG TABLET PO SCH (09:00)
[2018-01-12] MEDS ORDERED: GABAPENTIN 300 MG CAPSULE PO SCH (13:00)
[2018-01-13] MEDS ORDERED: LORAZEPAM 1 MG TABLET PO SCH (09:00)
[2018-01-14] MEDS ORDERED: LORAZEPAM 1 MG TABLET PO SCH (09:00)
== END 2018-01-12 09:41 | disposition other institution (70) | DRG 895 ==
LOC: SRC 14:39
PROVIDERS: ADMIT Family Medicine Addiction Medicine; ATTEND Family Medicine Addiction Medicine
PROC: HZ2ZZZZ Detoxification Services for Substance Abuse Treatment (ICD-10-PCS; principal; 2018-01-09)
PROC: HZ41ZZZ Group Counseling for Substance Abuse Treatment, Behavioral (ICD-10-PCS; 2018-01-10)
PROC: HZ31ZZZ Individual Counseling for Substance Abuse Treatment, Behavioral (ICD-10-PCS; 2018-01-10)
DX: F10.239 Alcohol dependence with withdrawal, unspecified (principal); Y90.6 Blood alcohol level of 120-199 mg/100 ml; F41.0 Panic disorder [episodic paroxysmal anxiety]; E83.42 Hypomagnesemia; E87.6 Hypokalemia; E78.5 Hyperlipidemia, unspecified; Z87.442 Personal history of urinary calculi; Z96.642 Presence of left artificial hip joint; Z81.1 Family history of alcohol abuse and dependence; Z82.49 Family history of ischemic heart disease and other diseases of the circulatory system; Z79.899 Other long term (current) drug therapy; F32.9 Major depressive disorder, single episode, unspecified; G47.00 Insomnia, unspecified
CPT/HCPCS: 36415; 70030-TC; 80307; 83690; 83735; 84443; 84703; 85025; 86592; 86705; 86803; 87340; 87806; A4663; G0480; J3411; Q0162